=== PATIENT | male | born 1955 | race Caucasian/White ===

== ENCOUNTER → 2017-08-11 | Outpatient (CLI) | payer MEDICARE, MEDICAID | LOC: M RAD 09:33 | DX: N40.1 Benign prostatic hyperplasia with lower urinary tract symptoms (principal) | CPT/HCPCS: 76857 ==

== ENCOUNTER 2017-10-23 09:21 | Day surgery (SDC) | payer MEDICARE, MEDICAID ==
[2017-10-23] MEDS ORDERED: LIDOCAINE 1% SDV 5 ML VIAL SQ (09:45)
[2017-10-23] MEDS: LR 1,000 ML IV (10:00)
[2017-10-23] MEDS ORDERED: fentaNYL 100 MCG/2 ML INJECTION (J3010) As Ordered (11:19)
[2017-10-23] MEDS ORDERED: LIDOCAINE 2% INJ 100 MG/5 ML SDV (FOR ANES.) As Ordered (11:19)
[2017-10-23] MEDS ORDERED: MIDAZOLAM INJ 2 MG/2 ML VIAL (J2250) As Ordered (11:19)
[2017-10-23] MEDS ORDERED: PROPOFOL 200 MG/20 ML VIAL As Ordered (11:19)
[2017-10-23] MEDS: LevoFLOXacin IV 500 MG in APPROPRIATE DILUENT 1 EA IV (12:28)
[2017-10-23] MEDS ORDERED: ONDANSETRON 4MG/2ML VIAL (J2405) As Ordered (12:48)
[2017-10-23] MEDS ORDERED: HYDROmorphone HCL 1 MG/ML SYRINGE (J1170) IV (13:15)
[2017-10-23] MEDS ORDERED: fentaNYL 100 MCG/2 ML INJECTION (J3010) IV (13:15)
[2017-10-23] MEDS ORDERED: PERCOCET 5MG/325MG TAB PO (13:15)
[2017-10-23] MEDS ORDERED: LR 1,000 ML IV (13:15)
[2017-10-23] MEDS ORDERED: ONDANSETRON 4MG/2ML VIAL (J2405) IV (13:15)
[2017-10-23] MEDS ORDERED: ACETAMINOPHEN TAB 650MG DOSE (2X325MG) PO (13:15)
== END 2017-10-23 15:35 | disposition home or self-care (01) ==
LOC: M SDC 09:21
DX: N40.1 Benign prostatic hyperplasia with lower urinary tract symptoms (principal); N13.8 Other obstructive and reflux uropathy; F41.9 Anxiety disorder, unspecified; F32.9 Major depressive disorder, single episode, unspecified; M02.30 Reiter's disease, unspecified site; L70.0 Acne vulgaris; M12.9 Arthropathy, unspecified; Z88.0 Allergy status to penicillin; Z88.1 Allergy status to other antibiotic agents; Z79.899 Other long term (current) drug therapy; Z91.048 Other nonmedicinal substance allergy status; Z86.19 Personal history of other infectious and parasitic diseases; Z96.1 Presence of intraocular lens
CPT/HCPCS: C9740

== ENCOUNTER → 2018-06-11 | Outpatient (REF) | payer MEDICARE, MEDICAID ==
[2018-06-11 17:43] LABS: PSA SCREENING 1.8 NG/ML (< 4.0)
== END ==
LOC: M LABSMT 14:13
DX: Z12.5 Encounter for screening for malignant neoplasm of prostate (principal)
CPT/HCPCS: G0103

== ENCOUNTER → 2019-06-11 | Outpatient (CLI) | payer MEDICARE, MEDICAID ==
[~2019-06-11] MED LIST: ARAV20TA PO; AVOD0.5C PO; BETA0.0543 EX; FLON1SPR; MULT1TAB10 PO; MUPI2OI EXT; TERA5CAP3 PO
[2019-06-11 10:41] LABS: BLOOD UREA NITROGEN 13 MG/DL (7-18); CALCIUM LEVEL 8.8 MG/DL (8.8-10.2); CARBON DIOXIDE LEVEL 33 MEQ/L (21-32); CHLORIDE LEVEL 103 MEQ/L (98-107); GLOMERULAR FILTRATION RATE > 60.0 (>49); GLUCOSE, FASTING 94 MG/DL (70-100); POTASSIUM SERUM 4.2 MEQ/L (3.5-5.1); SODIUM LEVEL 141 MEQ/L (136-145)
== END ==
LOC: M SMT 08:52
PROVIDERS: ATTEND Nurse Practitioner Family
DX: R31.0 Gross hematuria (principal); Z12.5 Encounter for screening for malignant neoplasm of prostate
CPT/HCPCS: 36415; 80048; G0103

== ENCOUNTER → 2019-06-11 | Outpatient (REF) | payer MEDICARE, MEDICAID ==
[2019-06-11 13:41] LABS: APPEARANCE, URINE HAZY (CLEAR); BACTERIA, URINE AUTO NEGATIVE (NEGATIVE); BILIRUBIN, URINE AUTO NEGATIVE (NEGATIVE); BLOOD, URINE BLOOD 3+ (NEGATIVE); COLOR, URINE YELLOW (YELLOW); GLUCOSE, URINE (UA) AUTO NEGATIVE (NEGATIVE); KETONE, URINE AUTO NEGATIVE (NEGATIVE); LEUKOCYTE ESTERASE, URINE AUTO NEGATIVE (NEGATIVE); MUCUS, URINE SMALL (NEGATIVE); NITRITE, URINE AUTO NEGATIVE (NEGATIVE); PROTEIN, URINE AUTO NEGATIVE (NEGATIVE); RBC, URINE AUTO 155 /HPF (0-3); SPECIFIC GRAVITY URINE AUTO 1.023 (1.002-1.035); SQUAMOUS EPITHELIAL CELL UR AU 0 /HPF (0-6); WBC, URINE AUTO 8 /HPF (0-3)
== END ==
LOC: M SMT 13:02
PROVIDERS: ATTEND Nurse Practitioner Family
DX: R31.0 Gross hematuria (principal); Z12.5 Encounter for screening for malignant neoplasm of prostate
CPT/HCPCS: 36415; 51798; 80048; 81001; 87086; 88108; G0103; G0463

== ENCOUNTER → 2019-06-21 | Outpatient (REF) | payer MEDICARE, MEDICAID | LOC: M SMT 17:08 | PROVIDERS: ATTEND Urology | DX: R31.0 Gross hematuria (principal) ==

== ENCOUNTER → 2019-06-21 | Outpatient (REF) | payer MEDICARE, MEDICAID | LOC: M SMT 17:12 | PROVIDERS: ATTEND Urology | DX: R31.0 Gross hematuria (principal) ==

== ENCOUNTER → 2019-06-22 | Outpatient (CLI) | payer MEDICARE, MEDICAID ==
[~2019-06-22] MED LIST changes: +ISOVUE-370 76% 100ML VIAL (Q9967) As Ordered ONE
--- NOTE | 2019-06-22 12:54 | REP ---
Clinical: Gross hematuria. Technique: Axial precontrast, contrast enhanced, and delayed images of the abdomen and pelvis using 100 ml Isovue 370 intravenous contrast material with coronal and sagittal re-formations as well as volume rendered 3-D urogram. Findings: Evaluation of the urinary tract system demonstrates 1 mm nonobstructing right intrarenal calculus. The kidneys are otherwise relatively age-appropriate and without hydronephrosis, cystic or renal mass lesion. There is focal dilatation to the distal right ureter just proximal to the ureteral vesicle junction measuring 2 cm diameter. There is a small left bladder diverticulum measuring 1.5 cm. Findings likely represent changes related to outlet obstruction as there is moderate mass effect along the posterior aspect of the bladder due to enlarged prostate gland. 2 cm hepatic cyst in the right lobe noted. Spleen, pancreas, gallbladder, and bilateral adrenal glands are normal. The enteric system is without obstruction or obvious acute inflammatory process. Colonic diverticulosis noted without acute diverticulitis. No ascites. No free air. No adenopathy. Abdominal aorta without aneurysm or dissection. Musculoskeletal structures demonstrate age-related degenerative changes. Lung bases are clear. Impression: 1. 1 mm nonobstructing right nephrolith. 2. Left bladder wall diverticulum and focal dilatation to the distal right ureter just above the level of the ureterovesical junction likely represent sequelae of chronic outlet obstruction with enlarged prostate gland noted. Electronically Signed by Rajan Nava MD 06/22/2019 12:45 P
== END ==
LOC: M RAD 10:41
PROVIDERS: ATTEND Nurse Practitioner Family
DX: R31.0 Gross hematuria (principal)
CPT/HCPCS: 74178; Q9967